=== PATIENT | female | born 1965 | race Two or more races ===

== ENCOUNTER 2019-09-26 10:08 | Outpatient (CLI) | payer OTHER | END 2019-09-26 10:14 | disposition home or self-care (01) | LOC: LAB 10:08 | PROVIDERS: ATTEND General Practice | DX: Z20.828 Contact with and (suspected) exposure to other viral communicable diseases (principal); R51 Headache; J11.1 Influenza due to unidentified influenza virus with other respiratory manifestations; R50.9 Fever, unspecified; Z11.59 Encounter for screening for other viral diseases ==